=== PATIENT | male | born 1980 | race Caucasian/White ===

== ENCOUNTER 2020-03-29 11:40 | Emergency (ER) | payer SELFPAY ==
[~2020-03-29] VITALS: Ht 155 cm; Wt 68.0 kg
--- NOTE | 2020-03-29 13:31 | ED Cough/URI ---
General Chief Complaint: Cough/Cold/Flu Symptoms Stated Complaint: COUGH/SOA/FEVER Nursing Triage Note: complaint of cough productive x 4 days. Sepsis Screen: No Definite Risk Source: patient Exam Limitations: no limitations History of Present Illness Date Seen by Provider: Mar 29, 2020 Time Seen by Provider: 12:22 Initial Comments Here with 4 days of cough and pain with deep breathing. Also had fever but doesn't have it today. Denies nausea, vomiting or diarrhea. Did have contact with somebody who was sick on Thursday night when she and her significant other got into a car with them and apparently there are coughing. They did not mention they were sick until afterwards. Unsure if there were COVID positive. Arrives with significant other and her child Timing/Duration: other (4 days ago) Severity/Quality: moderate, productive cough Associated Symptoms: cough, nasal congestion, shortness of breath, wheezing Allergies and Home Medications Patient Home Medication List Home Medication List Reviewed: Yes Review of Systems Review of Systems Constitutional: No chills, No fever EENTM: nose congestion, throat pain Respiratory: cough, short of breath Cardiovascular: no symptoms reported Gastrointestinal: diarrhea; No vomiting Genitourinary: no symptoms reported Musculoskeletal: no symptoms reported Skin: no symptoms reported Past Hhxxrbd-Bbyfsd-Eiyhiz Hx Past Med/Social Hx: Reviewed Nursing Past Med/Soc Hx Patient Social History Alcohol Use: Denies Use Recreational Drug Use: No Smoking Status: Current Everyday Smoker 2nd Hand Smoke Exposure: Yes Recent Foreign Travel: No Contact w/Someone Who Travel: No Recent Infectious Disease Expo: No Recent Hopitalizations: No Physical Abuse: No Sexual Abuse: No Mistreated: No Fear: No Seasonal Allergies Seasonal Allergies: No Past Medical History Surgeries: No Family Medical History Reviewed Nursing Family Hx Physical Exam Vital Signs - First Documented Capillary Refill : Less Than 3 Seconds Height: '" Weight: lbs. oz. kg; 28.00 BMI Method: General Appearance: WD/WN, no apparent distress HEENT: PERRL/EOMI, pharyngeal erythema, other (nasal congestion with clear rhinorrhea and moderate erythema) Respiratory: lungs clear, wheezing (a few scattered) Cardiovascular: regular rate, rhythm, no murmur Neurologic/Psychiatric: alert, oriented x 3 Skin: normal color, warm/dry Progress/Results/Core Measures Suspected Sepsis Recent Fever Within 48 Hours: No Infection Criteria Present: None New/Unexplained Altered Menta: No Sepsis Screen: No Definite Risk SIRS Temperature: Pulse: 85 Respiratory Rate: 18 Blood Pressure 138 /84 Mean: 102 Results/Orders Lab Results Laboratory Tests Test 03/29/20 12:30 Range/Units Group A Streptococcus Screen NEGATIVE NEGATIVE My Orders Orders - DANIEL BUCKLEY MD Rapid Strep A Screen (03/29/20 12:29) Coronavirus Sars-Cov-2 So 2018 (03/29/20 12:29) Vital Signs/I&O 03/29/20 03/29/20 12:58 12:58 Temp 36.6 Pulse 85 Resp 18 B/P (MAP) 138/84 (102) Pulse Ox 99 O2 Delivery Room Air Room Air Capillary Refill : Less Than 3 Seconds Blood Pressure Mean: 102 Progress Note : Progress Note Seen and evaluated. COVID-19 evaluation done. Rapid strep done. This was negative. COVID-19 swab pending. Discharged home with COVID precautions. Patient verbalize understanding instructions and agreement with plan. Departure Impression Primary Impression: Upper respiratory infection Qualified Codes: J06.9 - Acute upper respiratory infection, unspecified Additional Impression: Encounter for laboratory testing for COVID-19 virus Disposition: HOME, SELF-CARE Condition: Stable Departure-Patient Inst. Decision time for Depature: 13:31 Referrals: NO,LOCAL PHYSICIAN (PCP) Primary Care Physician Patient Instructions: Coronavirus Disease 2019 (COVID-19) (DC), Viral Upper Respiratory Infection, Adult (DC) Add. Discharge Instructions: All discharge instructions reviewed with patient and/or family. Voiced understanding. Drink plenty of fluids and get plenty of rest. You will need to remain on quarantine until test results are noted. If they are negative, you will need to be isolated for 3 days after symptoms resolve. If they are positive, the health department will call you and direct quarantine timeframe. You may take ibuprofen 600 mg every 8 hours as needed for fever or pain. You may take Tylenol/acetaminophen 1000 mg every 8 hours as needed for fever.. Return for worse pain, fever, vomiting, weakness, breathing problems or other concerns as needed. Scripts Albuterol Sulfate (VENTOLIN HFA) 1 Puff Puff 2 PUFF INH Q4H PRN for WHEEZING, #1 INHALER 1 Refill 1 PUFF = 90 MCG Prov: DANIEL BUCKLEY MD 03/29/20 DANIEL BUCKLEY MD Mar 29, 2020 13:31
[2020-03-29] MEDS ORDERED: RT-ALBUINH INH (13:33)
[2020-03-29 14:05] VITALS: BP 138/84
== END 2020-03-29 14:06 | disposition home or self-care (01) ==
LOC: ER 11:50
DX: J06.9 Acute upper respiratory infection, unspecified (principal); F17.290 Nicotine dependence, other tobacco product, uncomplicated; Z20.828 Contact with and (suspected) exposure to other viral communicable diseases
CPT/HCPCS: 87430; 99284; U0002; 87635

== ENCOUNTER 2022-09-24 12:06 | Emergency (ER) | payer OTHER ==
[~2022-09-24] VITALS: Ht 177 cm; Wt 65.0 kg
[~2022-09-24 12:06] MED LIST: RT-ALBUINH INH
--- NOTE | 2022-09-24 12:28 | ED Abdominal Pain ---
General Chief Complaint: Abdominal/GI Problems Stated Complaint: ABD PAIN Nursing Triage Note: RIGHT LOWER ABD PAIN WITH DIARRHEA STARTING X3 DAYS AGO. PT HAS HAD AN APPENDECTOMY. Source of Information: Patient Exam Limitations: No Limitations History of Present Illness Date Seen by Provider: Sep 24, 2022 Time Seen by Provider: 12:13 Initial Comments 42-year-old male presents to the emergency department today for abdominal pain. Symptoms present for 2 to 3 days. He has had an appendectomy. Pain is in the suprapubic region without radiation. It is constant pain without any obvious aggravating or alleviating factors. Describes it as like being punched in the stomach. He has had some loose years. No blood in the stools. No changes in urination. No penile symptoms. No new sexual partners. No testicular or groin pain. All other systems reviewed and negative except documented per HPI. Voice recognition software was used to help create this chart Allergies and Home Medications Allergies Coded Allergies: No Known Drug Allergies (Unverified , 03/29/20) Patient Home Medication List Home Medication List Reviewed: Yes Discontinued Medications Albuterol Sulfate (Ventolin Hfa) 1 Puff Puff, 2 PUFF INH Q4H PRN for WHEEZING Discontinued Reason: No Longer Taking Prescribed by: DANIEL BUCKLEY on 03/29/20 1333 Last Action: Discontinued Review of Systems Review of Systems Constitutional: see HPI Past Wtgsegw-Doomge-Vbpiza Hx Patient Social History Tobacco Use?: Yes Smoking Status: Current Someday Smoker Substance use?: Yes Substance type: Marijuana Alcohol Use?: No Immunizations Up To Date First/Initial COVID19 Vaccinat: UNKNOWN COVID19 Vaccine System Administration Advisor: EFRAIN Seasonal Allergies Seasonal Allergies: No Past Medical History Surgeries: No Family Medical History Reviewed Nursing Family Hx No Pertinent Family Hx Physical Exam Vital Signs Vital Signs - First Documented 09/24/22 12:16 Temp 36.7 Pulse 76 Resp 16 B/P (MAP) 122/77 (92) Pulse Ox 99 O2 Delivery Room Air Capillary Refill : Less Than 3 Seconds Height/Weight/BMI Height: '" Weight: lbs. oz. kg; 20.00 BMI Method: General Appearance: WD/WN, no apparent distress HEENT: normal ENT inspection, pharynx normal Neck: non-tender, full range of motion, supple Respiratory: chest non-tender, lungs clear, normal breath sounds, no respiratory distress, no accessory muscle use Cardiovascular: regular rate, rhythm, no JVD Gastrointestinal: normal bowel sounds, soft, tenderness (Suprapubic lethargic. No rebound tenderness. No mass organomegaly. Skin changes.) Extremities: normal range of motion, non-tender, normal inspection, normal capillary refill Neurologic/Psychiatric: alert, oriented x 3 Skin: normal color, warm/dry Progress/Results/Core Measures Results/Orders Lab Results Laboratory Tests Test 09/24/22 12:36 09/24/22 12:38 Range/Units White Blood Count 9.7 4.3-11.0 10^3/uL Red Blood Count 4.55 4.30-5.52 10^6/uL Hemoglobin 14.3 13.3-17.7 g/dL Hematocrit 42 40-54 % Mean Corpuscular Volume 91 80-99 fL Mean Corpuscular Hemoglobin 31 25-34 pg Mean Corpuscular Hemoglobin Concent 34 32-36 g/dL Red Cell Distribution Width 11.9 10.0-14.5 % Platelet Count 253 130-400 10^3/uL Mean Platelet Volume 10.1 9.0-12.2 fL Immature Granulocyte % (Auto) 0 % Neutrophils (%) (Auto) 70 42-75 % Lymphocytes (%) (Auto) 23 12-44 % Monocytes (%) (Auto) 6 0-12 % Eosinophils (%) (Auto) 1 0-10 % Basophils (%) (Auto) 1 0-10 % Neutrophils # (Auto) 6.8 1.8-7.8 10^3/uL Lymphocytes # (Auto) 2.2 1.0-4.0 10^3/uL Monocytes # (Auto) 0.6 0.0-1.0 10^3/uL Eosinophils # (Auto) 0.1 0.0-0.3 10^3/uL Basophils # (Auto) 0.1 0.0-0.1 10^3/uL Immature Granulocyte # (Auto) 0.0 0.0-0.1 10^3/uL Sodium Level 141 135-145 MMOL/L Potassium Level 4.1 3.6-5.0 MMOL/L Chloride Level 106 98-107 MMOL/L Carbon Dioxide Level 25 21-32 MMOL/L Anion Gap 10 5-14 MMOL/L Blood Urea Nitrogen 18 7-18 MG/DL Creatinine 0.93 0.60-1.30 MG/DL Estimat Glomerular Filtration Rate 104 BUN/Creatinine Ratio 19 Glucose Level 119 H 70-105 MG/DL Calcium Level 8.9 8.5-10.1 MG/DL Corrected Calcium 8.7 8.5-10.1 MG/DL Total Bilirubin 0.7 0.1-1.0 MG/DL Aspartate Amino Transf (AST/SGOT) 15 5-34 U/L Alanine Aminotransferase (ALT/SGPT) 13 0-55 U/L Alkaline Phosphatase 68 40-136 U/L Total Protein 6.3 L 6.4-8.2 GM/DL Albumin 4.3 3.2-4.5 GM/DL Urine Color YELLOW Urine Clarity CLEAR Urine pH 6.0 5-9 Urine Specific [place] >=1.030 1.016-1.022 Urine Protein NEGATIVE NEGATIVE Urine Glucose (UA) NEGATIVE NEGATIVE Urine Ketones NEGATIVE NEGATIVE Urine Nitrite NEGATIVE NEGATIVE Urine Bilirubin NEGATIVE NEGATIVE Urine Urobilinogen 0.2 < = 1.0 MG/DL Urine Leukocyte Esterase NEGATIVE NEGATIVE Urine RBC (Auto) NEGATIVE NEGATIVE Urine RBC NONE /HPF Urine WBC RARE /HPF Urine Crystals NONE /LPF Urine Bacteria NEGATIVE /HPF Urine Casts NONE /LPF Urine Mucus SMALL H /LPF Urine Culture Indicated NO My Orders Orders - VICK PARRA DO Cbc With Automated Diff (09/24/22 12:25) Comprehensive Metabolic Panel (09/24/22 12:25) Ua Culture If Indicated (09/24/22 12:25) Ct Abdomen/Pelvis W (09/24/22 12:25) Iohexol Injection (Omnipaque 350 Mg/Ml 1 (09/24/22 13:00) Received Contrast (Hold Metformin- Contr (09/24/22 13:00) Ns (Ivpb) (Sodium Chloride 0.9% Ivpb Bag (09/24/22 13:00) Medications Given in ED Vital Signs/I&O 09/24/22 09/24/22 12:16 13:27 Temp 36.7 Pulse 76 Resp 16 B/P (MAP) 122/77 (92) 125/78 Pulse Ox 99 O2 Delivery Room Air Blood Pressure Mean: [address] abdomen/pelvis with IV contrast IMPRESSION: 1. Low-attenuation lesion right lobe liver, too small to characterize. Liver ultrasound may be useful for further evaluation, on a nonemergent basis. 2. Questionable nonobstructing renal calculi bilaterally. There is no hydronephrosis. 3. No acute feature in the abdomen or pelvis is identified. Departure Communication (Admissions) Patient is hemodynamically stable with a nonsurgical abdominal exam. Labs are reassuring. CT abdomen pelvis IV contrast is negative for any acute findings causing his pain. He does have an identified liver nodule incidentally. Discussed outpatient ultrasound. No evidence for emergent medical condition at this time. No bowel obstruction, hernia, abscess. He has no testicular or penile symptoms. Urine is negative for infection. I did independently reviewed the CT scan images and see no additional findings Impression Primary Impression: Suprapubic pain Additional Impression: Liver nodule Disposition: HOME, SELF-CARE Condition: Stable Departure-Patient Inst. Referrals: NO,LOCAL PHYSICIAN (PCP/Family) Primary Care Physician Add. Discharge Instructions: You are seen in the emergency department today for abdominal pain in your lower abdomen. No emergent causes are identified. Your urine shows no evidence of i nfection. Your CT scan does not show any obvious causes either. You do incidentally have a nodule in your liver that was found on CT scan today. Follow-up with your primary doctor for possible ultrasound of this for further evaluation. Return to the emergency department for any severe concerns. Follow-up with your primary doctor for any nonemergent needs. All discharge instructions reviewed with patient and/or family. Voiced understanding. VICK PARRA DO Sep 24, 2022 12:27
[2022-09-24 12:41] LABS: BASOPHILS # (AUTO) 0.1 10^3/uL (0.0-0.1); BASOPHILS % (AUTO) 1 % (0-10); EOSINOPHILS # (AUTO) 0.1 10^3/uL (0.0-0.3); EOSINOPHILS % (AUTO) 1 % (0-10); HEMATOCRIT 42 % (40-54); HEMOGLOBIN 14.3 g/dL (13.3-17.7); LYMPHOCYTES # (AUTO) 2.2 10^3/uL (1.0-4.0); LYMPHOCYTES % (AUTO) 23 % (12-44); MEAN CORPUSCULAR HEMOGLOBIN 31 pg (25-34); MEAN CORPUSCULAR HGB CONC 34 g/dL (32-36); MEAN CORPUSCULAR VOLUME 91 fL (80-99); MEAN PLATELET VOLUME 10.1 fL (9.0-12.2); MONOCYTES # (AUTO) 0.6 10^3/uL (0.0-1.0); MONOCYTES % (AUTO) 6 % (0-12); NEUTROPHILS # (AUTO) 6.8 10^3/uL (1.8-7.8); NEUTROPHILS % (AUTO) 70 % (42-75); PLATELET COUNT 253 10^3/uL (130-400); WHITE BLOOD COUNT 9.7 10^3/uL (4.3-11.0)
[2022-09-24 12:45] LABS: BILIRUBIN,URINE NEGATIVE (NEGATIVE); CLARITY,URINE CLEAR; COLOR,URINE YELLOW; GLUCOSE, URINE (UA) NEGATIVE (NEGATIVE); KETONES,URINE NEGATIVE (NEGATIVE); LEUKOCYTE ESTERASE ,URINE NEGATIVE (NEGATIVE); NITRITE,URINE NEGATIVE (NEGATIVE); PROTEIN,URINE NEGATIVE (NEGATIVE)
[2022-09-24 12:56] LABS: BACTERIA,URINE NEGATIVE /HPF; WBC,URINE RARE /HPF
[2022-09-24] MEDS ORDERED: IOHEXOL 350 MG/ML 100 ML (OMNIPAQUE 350) VIAL IV ONE (13:00)
[2022-09-24] MEDS ORDERED: NS 100 ML (IVPB) BAG IV ONE (13:00)
[2022-09-24] MEDS ORDERED: HOLD METFORMIN - RECEIVED CONTRAST 20 ML VIAL IV SCH (13:00)
[2022-09-24 13:01] LABS: ALBUMIN 4.3 GM/DL (3.2-4.5)
[2022-09-24 13:02] LABS: POTASSIUM 4.1 MMOL/L (3.6-5.0)
[2022-09-24 13:03] LABS: CALCIUM 8.9 MG/DL (8.5-10.1)
[2022-09-24 13:04] LABS: TOTAL PROTEIN 6.3 GM/DL (6.4-8.2)
[2022-09-24 13:06] LABS: BILIRUBIN,TOTAL 0.7 MG/DL (0.1-1.0)
[2022-09-24 13:08] LABS: CREATININE SERUM 0.93 MG/DL (0.60-1.30)
--- NOTE | 2022-09-24 13:17 | Diagnostic Imaging Report ---
PROCEDURE: CT abdomen and pelvis with contrast. TECHNIQUE: Multiple contiguous axial images were obtained through the abdomen and pelvis after administration of intravenous contrast. Auto Exposure Controls were utilized during the CT exam to meet ALARA standards for radiation dose reduction. All CT scans use one or more of the following dose optimizing techniques: automated exposure control, MA and/or KvP adjustment based on patient size and exam type or iterative reconstruction. INDICATION: Mid to lower abdominal pain for 3 days. No prior studies are available for comparison. The lung bases are clear. There is a low-density lesion in the right lobe of the liver approximately 16 mm in size. This cannot be characterized as purely cystic. No other liver lesions are seen. Gallbladder is contracted. There is no biliary ductal dilatation. Pancreas and spleen are unremarkable. No adrenal mass is detected. Both kidneys do show some tiny foci of increased density, indeterminate between nonobstructing calculi versus excreted contrast. No hydronephrosis is seen. Aorta is nonaneurysmal. The small and large bowel loops are normal caliber. There is no obstruction. There are postop changes from appendectomy. There is a small amount of free fluid in the pelvis. Bladder is decompressed. Prostate is unremarkable. IMPRESSION: 1. Low-attenuation lesion right lobe liver, too small to characterize. Liver ultrasound may be useful for further evaluation, on a nonemergent basis. 2. Questionable nonobstructing renal calculi bilaterally. There is no hydronephrosis. 3. No acute feature in the abdomen or pelvis is identified. Dictated by: Dictated on workstation # [id number]
[2022-09-24 13:27] VITALS: BP 125/78
== END 2022-09-24 13:27 | disposition home or self-care (01) ==
LOC: EDUNIT# 12:06 → ER 12:13
DX: R10.31 Right lower quadrant pain (principal); K76.89 Other specified diseases of liver; F17.200 Nicotine dependence, unspecified, uncomplicated; Z90.49 Acquired absence of other specified parts of digestive tract
CPT/HCPCS: 36415; 74177; 80053; 81000; 85025

== ENCOUNTER 2023-04-28 13:51 | Emergency (ER) | payer BC ==
[~2023-04-28] VITALS: Ht 177 cm; Wt 65.7 kg
[2023-04-28 14:21] VITALS: BP 111/80
[2023-04-28] MEDS ORDERED: NEOM28.34 TP (14:41)
--- NOTE | 2023-04-28 14:42 | ED Integumentary General ---
General Chief Complaint: Skin/Wound Problems Stated Complaint: SPIDER BITE ON CHEST Nursing Triage Note: PT AMBULATORY TO ER. PT REPORTS POSSIBLE SPIDER BITE TO LEFT CHEST BY NIPPLE, AREA OF REDNESS NOTED. PT REPORTS ALSO HAS A CYST TO HIS R UPPER LEG THAT HE WANTS LOOKED AT. Source: patient Exam Limitations: no limitations (FROYLAN LEE) History of Present Illness Date Seen by Provider: Apr 28, 2023 Time Seen by Provider: 14:36 Initial Comments Patient is a 43-year-old male who presents to the ED with potential spider bite around his left nipple. Patient noted the area 2 days ago. Noted some increased redness and swelling. Denies of any drainage or concern for an abscess at this time. Denies fever, chills, nausea, vomiting. Denies of any specific injury. Denies apply anything topical. Patient also reports a lump to his right posterior hamstring. States he had this area 3 to 4 years ago. Increased in size and pain. Denies any redness or warmth. Patient has not been evaluated for this area. (FROYLAN LEE) Allergies and Home Medications Allergies Coded Allergies: No Known Drug Allergies (Unverified , 03/29/20) Patient Home Medication List Home Medication List Reviewed: Yes (FROYLAN LEE) Neomycn/Baci Zn/Pmyx Bs/Pramox (Neosporin + Pain Relief Oint) 3.5-10K-10 Oint...g., 28.3 GM TP BID Prescribed by: OBDULIO TRUONG on 04/28/23 1441 Review of Systems Review of Systems Constitutional: No chills, No diaphoresis, No malaise, No weakness EENTM: No ear pain, No blurred vision, No double vision, No mouth pain, No mouth swelling, No throat pain, No throat swelling Respiratory: No cough, No dyspnea on exertion Cardiovascular: No chest pain Gastrointestinal: No abdominal pain, No diarrhea, No dysphagia, No nausea, No vomiting Genitourinary: No decreased output, No discharge Musculoskeletal: No back pain Skin: change in color; No change in hair/nails; lesions, lumps (FROYLAN LEE) All Other Systems Reviewed Negative Unless Noted: Yes (FROYLAN LEE) Past Fdpoipf-Gcueig-Eszhqf Hx Patient Social History Tobacco Use?: Yes Tobacco type used: Cigarettes Smoking Status: Current Everyday Smoker Substance use?: Yes Substance type: Marijuana Alcohol Use?: No Pt feels they are or have been: No (FROYLAN LEE) Immunizations Up To Date First/Initial COVID19 Vaccinat: RECEIVED, UNK WHEN COVID19 Vaccine Park Attendant: UNK (FROYLAN LEE) Seasonal Allergies Seasonal Allergies: No (FROYLAN LEE) Past Medical History Surgeries: No (FROYLAN LEE) Family Medical History No Pertinent Family Hx (FROYLAN LEE) Physical Exam Vital Signs Vital Signs - First Documented 04/28/23 14:21 Temp 36.8 Pulse 70 Resp 16 B/P (MAP) 111/80 (90) Pulse Ox 97 (TONY EPPS MD) Vital Signs Capillary Refill : (FROYLAN LEE) General Appearance: WD/WN, no apparent distress HEENT: PERRL/EOMI, normal ENT inspection, TMs normal, pharynx normal Neck: non-tender, full range of motion, supple Cardiovascular: regular rate, rhythm, no edema, no gallop, no JVD Respiratory: chest non-tender, lungs clear, normal breath sounds, no respiratory distress, no accessory muscle use Gastrointestinal: normal bowel sounds, non tender, soft Back: normal inspection, no CVA tenderness Extremities: normal range of motion, non-tender, normal inspection, no pedal edema, other (Free movable nodule to right proximal hamstring. Tenderness to palpate. No erythema surrounding swelling or redness.) Neurologic/Psychiatric: hotbed operator II-XII nml as tested, no motor/sensory deficits, alert, normal mood/affect, oriented x 3 Skin: warm/dry, other (Pea-sized area of erythema lateral to the left nipple. No fluctuant mass mild tenderness to palpate. No pustule) Lymphatic: no adenopathy (FROYLAN LEE) Progress/Results/Core Measures Results/Orders Vital Signs/I&O 04/28/23 14:21 Temp 36.8 Pulse 70 Resp 16 B/P (MAP) 111/80 (90) Pulse Ox 97 (TONY EPPS MD) Blood Pressure Mean: 90 Departure Communication (PCP) Patient has a area lateral to the left nipple that is erythematous about the size of a pea. Potential localized bite versus folliculitis. No pustules, obvious abscess. At this time I think topical Neosporin would be reasonable. Continue monitoring. If increased redness or swelling is recommended come to ED. No oral antibiotics at this time. Tylenol ibuprofen for pain. Does have a freely movable nodule to the right posterior upper hamstring. No surrounding redness or swelling. Tenderness to palpate. Concern for lipoma versus cyst. Reports increase in size likely more of a sebaceous type cyst. Does not appear infectious at this time. No emergent incision and drainage. Provided general surgery outpatient follow-up for further evaluation as this may require elliptical incision and removal. Return precaution were discussed with patient. (FROYLAN LEE) Impression Primary Impression: Cyst Additional Impression: Bite Disposition: 01 HOME, SELF-CARE Condition: Stable Departure-Patient Inst. Decision time for Depature: 14:40 (FROYLAN LEE) Referrals: [facility]/BRIAN MAGAÑA DO NO,LOCAL PHYSICIAN (PCP) Primary Care Physician Patient Instructions: Spider bites Add. Discharge Instructions: Recommend applying topical Neosporin. If increased redness or swelling to return back to ED. Recommend follow-up with general surgery for the cyst to the right upper posterior leg. All discharge instructions reviewed with patient and/or family. Voiced und erstanding. Scripts Neomycn/Baci Zn/Pmyx Bs/Pramox (Neosporin + Pain Relief Oint) 3.5-10K-10 Oint...g. 28.3 GM TP BID for 14 Days, #1 EA Prov: FROYLAN LEE 04/28/23 ATTENDING PHYSICIAN NOTE: I was physically present as attending physician in the emergency department during the care of this patient, but I was not directly involved in the decision making or delivery of care for this patient. (TONY EPPS MD) FROYLAN LEE Apr 28, 2023 14:41 TONY EPPS MD Apr 29, 2023 17:14
== END 2023-04-28 14:51 | disposition home or self-care (01) ==
LOC: EDUNIT# 13:51 → ER 13:53
DX: T63.301A Toxic effect of unspecified spider venom, accidental (unintentional), initial encounter (principal); N60.02 Solitary cyst of left breast; R22.41 Localized swelling, mass and lump, right lower limb; F17.210 Nicotine dependence, cigarettes, uncomplicated
CPT/HCPCS: 99281